=== PATIENT | male | born 1960 | race Caucasian/White ===

== ENCOUNTER 2019-03-23 00:33 | Emergency (ER) | payer OTHER ==
[~2019-03-23] VITALS: Ht 180.3 cm; Wt 106.6 kg
[2019-03-23 00:40] VITALS: Ht 180.3 cm; Wt 106.6 kg
[2019-03-23] MEDS ORDERED: ASPIRIN 81 MG TAB PO ONE (02:30)
[2019-03-23] MEDS ORDERED: NITROGLYCERIN (SL) 0.4 MG TAB SL ONE (04:30)
[2019-03-23 04:54] VITALS: BP 156/101; PULSE 78; RESP 17
== END 2019-03-23 04:58 | disposition home or self-care (01) ==
LOC: E/R 00:33
DX: R07.9 Chest pain, unspecified (principal)
CPT/HCPCS: 71045; 80048; 84484; 85025; 93005; Z7610; 36415